=== PATIENT | female | born 1945 | race Caucasian/White ===

== ENCOUNTER 2017-06-25 15:18 | Observation (INO) | payer MEDICARE, OTHER ==
[~2017-06-25] VITALS: Ht 152.4 cm; Wt 55.2 kg
[~2017-06-25 15:18] MED LIST: ALEN70TA30 PO; CALC-67 PO; GLUC1CAP37 PO; IBUP200C11 PO; SIMV40TA3 PO; SODI126M NASAL
--- NOTE | 2017-06-25 16:55 | ERD ---
ER Documentation Chief Complaint Chief Complaint foot slipped while walking and fell forward, 1' lac on forehead (DILIA PAUL MD) HPI 71-year-old female with a history of hypertension presenting after a ground- level fall. She states she was walking and felt like she was suddenly falling to the floor. She has felt intermittently dizzy this week but is unable to describe further. She had no loss of consciousness but did hit her head on the ground. She denies any associated chest pain or shortness of breath. Currently she denies any significant headache, focal weakness, focal numbness, nausea, or vision disturbance. No tinnitus or earache. (DILIA PAUL MD) ROS All systems reviewed and are negative except as per history of present illness. (DILIA PAUL MD) Medications Home Meds Active Scripts Sodium Chloride (Saline Nasal Mist) 126 Ml Mist, 1 SPRAY NASAL QID for 7 Days, BOTTLE Prov:MAGO OWENS MD 04/08/16 Reported Medications Brimonidine/Timolol* (Combigan*) 5 Ml Drops, 1 DROP LEFT EYE BID, BOTTLE 06/25/17 Difluprednate (Durezol) 5 Ml Drops, 5 ML OP BID, BOTTLE 1 DROP LEFT EYE BID 06/25/17 Ketorolac Tromethamine Oph (Ketorolac Tromethamine Oph) 0.4%-5 Ml Opht Drops, 1 DROP LEFT EYE BID, EA 06/25/17 Gluc Gutierres/Chondroitin Sulfate A (Glucosamine Chondroitin Cap) 1 Cap Capsule, 1 CAP PO BID 05/21/15 Simvastatin (Simvastatin) 40 Mg Tablet, 40 MG PO HS, TAB 05/21/15 Ibuprofen* (Advil*) 200 Mg Capsule, 200 MG PO Q6H Y for PAIN, CAP 05/21/15 Alendronate Sodium* (Fosamax*) 70 Mg Tablet, 70 MG PO Q7D, TAB 05/21/15 Calcium Carbonate/Vitamin D3* (Os-Federico 500+D*) 1 Tab Tablet, 1 TAB PO TID, TAB 05/21/15 Allergies Allergies: Coded Allergies: No Known Allergy (Unverified , 05/21/15) PMhx/Soc History of Surgery: Yes (Left eye surgery) Hx Cardiac Disorders: Yes (Hypertension) Hx Alcohol Use: Yes (soc) Hx Substance Use: No Hx Tobacco Use: No Smoking Status: Never smoker (DILIA PAUL MD) FmHx Family History: No coronary disease (DILIA PAUL MD) Physical Exam Vitals Vital Signs Date Time Temp Pulse Resp B/P Pulse Ox O2 Delivery O2 Flow Rate FiO2 06/25/17 15:31 100.9 79 20 195/86 98 (SKYLER BROWN-C) Physical Exam INITIAL VITAL SIGNS: Reviewed by me GENERAL: Well developed, well nourished.. No apparent distress. HEAD: No trauma overlying scalp. Vertical 2 cm laceration above and medial to the right brow. No facial TTP. EYES: EOMI. right pupil round and reactive to light. Left pupil slightly larger and irregularly shaped, baseline per patient due to multiple eye surgeries, but is reactive to light. No subconjunctival hemorrhage. No nystagmus ENT: Nose non-tender. No septal hematoma. Nasopharynx and oropharynx clear. No dental, lip, or tongue injury NECK: No cervical spine TTP RESPIRATORY: Clear to auscultation bilaterally. No increased work of breathing. CV: Regular rate and rhythm. Cap refill <2sec. 2+ Radial and 2+ dorsalis pedis pulses. ABDOMEN: Soft, non-distended, non-tender. No guarding or rebound. Normal active bowel sounds. BACK: No thoracic or lumbar spine TTP. No CVA tenderness. EXTREMITIES: Normal to inspection and palpation. No deformities seen. Full ROM in extremities. SKIN: Warm, dry, pink. NEUROLOGIC: A&Ox4. No facial asymmetry. Cranial nerves intact. Motor and sensory function intact to all 4 extremities. Gait steady and normal. (DILIA PAUL MD) Result Diagram: 06/25/17 1650 06/25/17 1650 Results 24 hrs Laboratory Tests Test 06/25/17 16:50 White Blood Count 7.810^3/ul Red Blood Count 4.0910^6/ul Hemoglobin 13.6g/dl Hematocrit 39.3% Mean Corpuscular Volume 96.1fl Mean Corpuscular Hemoglobin 33.3pg Mean Corpuscular Hemoglobin Concent 34.6g/dl Red Cell Distribution Width 12.2% Platelet Count 01109^3/UL Mean Platelet Volume 10.4fl Neutrophils % 67.0% Lymphocytes % 22.7% Monocytes % 7.6% Eosinophils % 1.7% Basophils % 0.4% Nucleated Red Blood Cells % 0.0/100WBC Neutrophils # 5.210^3/ul Lymphocytes # 1.810^3/ul Monocytes # 0.610^3/ul Eosinophils # 0.110^3/ul Basophils # 0.010^3/ul Nucleated Red Blood Cells # 0.010^3/ul Sodium Level 144mmol/L Potassium Level 4.4mmol/L Chloride Level 108mmol/L Carbon Dioxide Level 26mmol/L Anion Gap 14 Blood Urea Nitrogen 15mg/dl Creatinine 0.65mg/dl Glucose Level 107mg/dl Calcium Level 9.7mg/dl Troponin I < 0.012ng/ml Current Medications Medications (Trade) Dose Ordered Sig/Cynthia Route PRN Reason Start Time Stop Time Status Last Admin Dose Admin Lidocaine (Xylocaine 1% (Mdv) 20 ml) 20 ml ONCE ONCE SC 06/25/17 17:30 06/25/17 17:31 DC (SKYLER BROWN PA-C) Results 24 hrs Laboratory Tests Test 06/25/17 16:50 06/25/17 17:35 White Blood Count 7.810^3/ul Red Blood Count 4.0910^6/ul Hemoglobin 13.6g/dl Hematocrit 39.3% Mean Corpuscular Volume 96.1fl Mean Corpuscular Hemoglobin 33.3pg Mean Corpuscular Hemoglobin Concent 34.6g/dl Red Cell Distribution Width 12.2% Platelet Count 83849^3/UL Mean Platelet Volume 10.4fl Neutrophils % 67.0% Lymphocytes % 22.7% Monocytes % 7.6% Eosinophils % 1.7% Basophils % 0.4% Nucleated Red Blood Cells % 0.0/100WBC Neutrophils # 5.210^3/ul Lymphocytes # 1.810^3/ul Monocytes # 0.610^3/ul Eosinophils # 0.110^3/ul Basophils # 0.010^3/ul Nucleated Red Blood Cells # 0.010^3/ul Sodium Level 144mmol/L Potassium Level 4.4mmol/L Chloride Level 108mmol/L Carbon Dioxide Level 26mmol/L Anion Gap 14 Blood Urea Nitrogen 15mg/dl Creatinine 0.65mg/dl Glucose Level 107mg/dl Calcium Level 9.7mg/dl Troponin I < 0.012ng/ml Urine Color COLORLESS Urine Clarity CLEAR Urine pH 7.0 Urine Specific [place] 1.003 Urine Ketones NEGATIVEmg/dL Urine Nitrite NEGATIVEmg/dL Urine Bilirubin NEGATIVEmg/dL Urine Urobilinogen NEGATIVEmg/dL Urine Leukocyte Esterase NEGATIVELeu/ul Urine Microscopic RBC 2/HPF Urine Microscopic WBC 0/HPF Urine Hemoglobin 1+mg/dL Urine Glucose NEGATIVEmg/dL Urine Total Protein NEGATIVEmg/dl Current Medications Medications (Trade) Dose Ordered Sig/Cynthia Route PRN Reason Start Time Stop Time Status Last Admin Dose Admin Lidocaine (Xylocaine 1% (Mdv) 20 ml) 20 ml ONCE ONCE SC 06/25/17 17:30 06/25/17 17:31 DC Ondansetron HCl (Zofran Inj) 4 mg ER BRIDGE PRN IV NAUSEA AND/OR VOMITING 06/25/17 19:30 06/26/17 19:29 Acetaminophen (Tylenol Tab) 650 mg ER BRIDGE PRN PO MILD PAIN/FEVER 06/25/17 19:30 06/26/17 19:29 Calcium/Vitamin D (Oyster Shell/ Vit-D (500/200)) 1 tab TID PO 06/25/17 21:00 UNV Miscellaneous Information 1 cap BID PO 06/25/17 21:00 UNV Miscellaneous Information 40 mg HS PO 06/25/17 21:00 UNV Miscellaneous Information 1 spray QID NASAL 06/25/17 21:00 UNV IV Flush (NS 3 ml) 3 ml PER PROTOCOL IV 06/25/17 20:30 Ondansetron HCl (Zofran Inj) 4 mg Q6H PRN IV NAUSEA AND/OR VOMITING 06/25/17 20:30 Nitroglycerin (Nitroglycerin (Sl Tab) 0.4 Mg) 1 tab Q5M PRN SL CHEST PAIN 06/25/17 20:30 Acetaminophen (Tylenol Tab) 650 mg Q6H PRN PO PAIN LEVEL 1-3 OR FEVER 06/25/17 20:30 Docusate Sodium (Colace) 100 mg Q12H PRN PO CONSTIPATION 06/25/17 20:30 Bisacodyl (Dulcolax) 5 mg DAILY PRN PO CONSTIPATION 06/25/17 20:30 Hydralazine HCl (Apresoline) 10 mg Q4H PRN IV ELEVATED SYSTOLIC BP 06/25/17 21:30 (DILIA PAUL MD) Procedures/MDM EMERGENT LABS AND DIAGNOSTIC STUDIES: Lab Results above were reviewed and interpreted by me. CBC: no anemia or evidence of infection BMP: No evidence of electrolyte abnormality, renal failure, hypoglycemia Troponin within normal limits UA: no evidence of infection 12-lead EKG was interpreted by Adriana Paul MD: Normal Sinus Rhythm with ventricular rate of 77 beats per minute Normal axis Normal intervals Minimal ST depressions in V4 through V6, and inferior leads Abnormal EKG, no STEMI. Radiology Results as interpreted by Radiology below were reviewed by Ivan Paul MD: Chest x-ray: no acute abnormalities Head/face CT: NO acute abnormalities Initial Nursing notes reviewed. Previous Medical Records requested via the Electronic Health Record. EMERGENCY DEPARTMENT COURSE / MEDICAL DECISION MAKING: Patient is presenting after near syncopal episode and a ground-level fall with head injury. Her vitals on presentation were notable for significantly elevated blood pressure. However her neurologic exam is normal and she has no focal deficits at this time. She was also noted to have a low-grade fever, however her temperature was rechecked and was normal. Patient's symptoms and workup are not consistent with an acute infection. I have a low suspicion for acute stroke. TIA is also less likely. Patient did not have any typical symptoms of acute coronary syndrome or aortic dissection, however her EKG changes were worrisome and will warrant further workup. Patient will be admitted to telemetry for further monitoring. At this time there are no acute changes on her head CT. Laceration was repaired by SEPIDEH Pandya Accepting Care Team: Current data and ongoing care discussed. Time: Time of admission Primary Provider: Sanya Consulting: none Outstanding Data: none (DILIA PAUL MD) 1. laceration Repair by Skyler Brown PA-C: Patient was verbally consented Anesthesia: 1% lidocaine locally Location: Forehead Tendon/Joint/Nerves: No injury Foreign body: None detected after copious irrigation and exploration Technique: Simple Interrupted Sutures 3 using 5-0 Ethilon Complexity: No subcutaneous sutures/mucosal repair/ edge excision Post Closure Length: 2.5 cm 2. laceration Repair by Skyler Brown PA-C: Patient was verbally consented Anesthesia: 1% lidocaine locally Location: Forehead Tendon/Joint/Nerves: No injury Foreign body: None detected after copious irrigation and exploration Technique: Simple Interrupted Sutures 3 using 5-0 Ethilon Complexity: No subcutaneous sutures/mucosal repair/ edge excision Post Closure Length: 2 cm (SKYLER BROWN PA-C) Departure Diagnosis: Primary Impression: Near syncope Additional Impressions: Laceration of forehead Encounter type: initial encounter Qualified Code: S01.81XA - Laceration of forehead, initial encounter Head injury Encounter type: initial encounter Qualified Code: S09.90XA - Injury of head , initial encounter Uncontrolled hypertension Condition: Fair DILIA PAUL MD Jun 25, 2017 16:55 SKYLER BROWN PA-C Jun 25, 2017 18:04
[2017-06-25 17:00] LABS: BASOPHILS % 0.4 % (0.0-2.0); EOSINOPHILS # 0.1 10^3/ul (0.0-0.5); EOSINOPHILS % 1.7 % (0.0-7.0); HEMATOCRIT 39.3 % (37.0-47.0); HEMOGLOBIN 13.6 g/dl (12.0-16.0); LYMPHOCYTES # 1.8 10^3/ul (0.8-2.9); LYMPHOCYTES % 22.7 % (15.0-51.0); MEAN CORPUSCULAR HEMOGLOBIN 33.3 pg (29.0-33.0); MEAN CORPUSCULAR HGB CONC 34.6 g/dl (32.0-37.0); MEAN CORPUSCULAR VOLUME 96.1 fl (82.0-101.0); MEAN PLATELET VOLUME 10.4 fl (7.4-10.4); MONOCYTE # 0.6 10^3/ul (0.3-0.9); MONOCYTES % 7.6 % (0.0-11.0); NEUTROPHIL # 5.2 10^3/ul (1.6-7.5); PLATELET COUNT 225 10^3/UL (140-415); RED BLOOD COUNT 4.09 10^6/ul (4.20-5.40); RED CELL DISTRIBUTION WIDTH 12.2 % (11.5-14.5); WHITE BLOOD COUNT 7.8 10^3/ul (4.8-10.8)
[2017-06-25 17:16] LABS: ANION GAP 14 (8-16); BLOOD UREA NITROGEN 15 mg/dl (7-20); CALCIUM 9.7 mg/dl (8.4-10.2); CARBON DIOXIDE 26 mmol/L (21-31); CHLORIDE 108 mmol/L (97-110); CREATININE 0.65 mg/dl (0.44-1.00); GLUCOSE 107 mg/dl (70-220); POTASSIUM 4.4 mmol/L (3.5-5.1); SODIUM 144 mmol/L (135-144)
--- NOTE | 2017-06-25 17:19 | RADRPT ---
PROCEDURE: XR Chest. CLINICAL INDICATION: Syncope TECHNIQUE: Single AP portable chest. COMPARISON: 05/21/2015Chest x-ray FINDINGS: The cardiomediastinal silhouette is within normal limits of size. Atherosclerotic calcification of t he aorta. The lungs are clear without pleural effusion or focal consolidation. No pneumothorax. The osseous structures and soft tissues are unremarkable. IMPRESSION: 1. No evidence for active cardiopulmonary disease. RPTAT:AAJJ Farhana Oswald Physician Date Time Electronically viewed and signed by Physician Aishwarya on 06/25/2017 17:19 ROSIE/
--- NOTE | 2017-06-25 17:25 | RADRPT ---
PROCEDURE: CT HEAD NON CONTRAST CLINICAL INDICATION: Syncope with head injury TECHNIQUE: Utilizing the multi-slice spiral CT scanner, multiple images were obtained through the b rain without intravenous contrast. Automatic exposure control was utilized as dose lowering techniqu e.DICOM images available One of more of the following dose reduction techniques were utilized: -automatic exposure control.-a djustment of the mA and/or kV according to patient size. -Use of iterative reconstruction technique. Radiation Dose: CTDI is 44.68 mGy. DLP is 720.23 mGy-cm. COMPARISON: None FINDINGS: Ventricular system appears unremarkable. Periventricular low density area suggestive of deep white m atter ischemic changes. No acute intracranial bleed, midline shift, acute extra-axial collection not ed. 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 Calcification intracranial ICA noted at the level of cavernous si nus. Bony calvarium and overlying soft tissues appear unremarkable. Posterior fossa and brainstem ap pears unremarkable. IMPRESSION: NO ACUTE INTRACRANIAL BLEED NOTED. RPTAT: AAOO Physician Darlin Date Time Electronically viewed and signed by Physician Darlin on 06/25/2017 17:24 MB/
[2017-06-25] MEDS ORDERED: LIDOCAINE 1% (MDV) 20 ML INJ SC ONE (17:30)
--- NOTE | 2017-06-25 17:31 | RADRPT ---
PROCEDURE: CT SCAN OF FACE AND SINUSES CLINICAL INDICATION: Fall with trauma TECHNIQUE: Transaxial slices through the sinus was obtained with bone and soft tissue windows. Add itional sagittal and coronal reconstruction images were acquired. One of more of the following dose reduction techniques were utilized: -automatic exposure control.-adjustment of the mA and/or kV acco rding to patient size. -Use of iterative reconstruction technique.DICOM images available Radiation Dose: CTDI vol 29.41 mGy, DLP 495.39 mGy-cm. One of more of the following dose reduction techniques were utilized: -automatic exposure control -adjustment of the mA and/or kV according to patient size -Use of iterative reconstruction technique CONTRAST: None COMPARISON: None FINDINGS: Temporomandibular joints, hard palate, atlantoaxial, atlanto-occipital joints appear intact. Calcifi cation intracranial ICA noted at the level of cavernous sinus. Nasal septum is in the midline. Minim al air-fluid levels noted in the left maxillary sinus. Ostiomeatal unit is patent. No blowout fractu res seen. Moderate degenerative changes noted in the upper cervical spine mandible , zygoma appears intact. Prosthetic left lobe is seen. Mild right frontal soft tissue swelling noted. Limited slices through the brain appear unremarkable. IMPRESSION: No blowout fracture noted. RPTAT: AAOO Physician Darlin Date Time Electronically viewed and signed by Physician Darlin on 06/25/2017 17:31 MB/
[2017-06-25 17:32] LABS: TROPONIN-I < 0.012 ng/ml (0.00-0.12)
[2017-06-25 18:09] LABS: ADD UMIC YES; UR ASCORBIC ACID NEGATIVE (NEGATIVE); UR BILIRUBIN (Dip) NEGATIVE (NEGATIVE); UR BLOOD (Dip) 1+ mg/dL (NEGATIVE); UR CLARITY CLEAR (CLEAR); UR COLOR COLORLESS (YELLOW); UR GLUCOSE (Dip) NEGATIVE (NEGATIVE); UR KETONES (Dip) NEGATIVE (NEGATIVE); UR LEUKOCYTE ESTERASE (Dip) NEGATIVE Leu/ul (NEGATIVE); UR NITRITE (Dip) NEGATIVE (NEGATIVE); UR RBC 2 /HPF (0-5); UR SPECIFIC GRAVITY (Dip) 1.003 (1.003-1.030); UR TOTAL PROTEIN (Dip) NEGATIVE (NEGATIVE); UR UROBILINOGEN (Dip) NEGATIVE (NEGATIVE)
[2017-06-25] MEDS ORDERED: ACETAMINOPHEN 325 MG TAB PO PRN ×2 (19:30→20:30)
[2017-06-25] MEDS ORDERED: ONDANSETRON 4 MG INJ IV PRN ×2 (19:30→20:30)
[2017-06-25] MEDS ORDERED: NITROGLYCERIN (SL) 0.4 MG TAB SL PRN (20:30)
[2017-06-25] MEDS ORDERED: DOCUSATE SODIUM 100 MG CAP PO PRN (20:30)
[2017-06-25] MEDS ORDERED: BISACODYL (EC) 5 MG TAB PO PRN (20:30)
[2017-06-25] MEDS ORDERED: NACL 0.9% 3 ML SYG IV SCH (20:30)
[2017-06-25] MEDS ORDERED: [UNRECOGNIZED DRUG - OTHER] PO SCH (21:00)
[2017-06-25] MEDS ORDERED: CHONDROITIN SULFATE A PO SCH (21:00)
[2017-06-25] MEDS ORDERED: GLUC SU PO SCH (21:00)
[2017-06-25] MEDS ORDERED: hydrALAzine 20 MG INJ IV PRN (21:30)
[2017-06-25] MEDS ORDERED: KETO5DRO79 LEFT EYE (21:33)
[2017-06-25] MEDS ORDERED: DIFL5DRO OP (21:35)
[2017-06-25] MEDS ORDERED: COMBIG5 LEFT EYE (21:35)
--- NOTE | 2017-06-25 22:02 | RADRPT ---
PROCEDURE: US Carotids. CLINICAL INDICATION: bruit , possible TECHNIQUE: Multiple sonographic of the carotid bifurcation region and vertebral arteries were obta ined utilizing davis scale, duplex and color-flow imaging. The images were reviewed on a PACS worksta tion. COMPARISON: No prior studies are available for comparison. FINDINGS: Evaluation of the right carotid bifurcation region reveals mild to moderate calcific atherosclerotic disease. There is a 43% stenosis in the right carotid bulb region. Evaluation of the left carotid bifurcation region reveals mild calcific atherosclerotic disease. The re is a 31% stenosis in the left carotid bulb region. There is antegrade flow within the vertebral arteries bilaterally. RIGHT CAROTID MEASUREMENTS: Common Carotid Jbzion18.6 (cm/sec) Internal Carotid Artery - zurborze33.8 (cm/sec) Internal Carotid Artery - mid64 (cm/sec) Internal Carotid Artery - itgrft23.1 (cm/sec) Internal Carotid/Common Carotid0.92 LEFT CAROTID MEASUREMENTS: Common Carotid Cduwzq52.6 (cm/sec) Internal Carotid Artery - kbzhnwad13.5 (cm/sec) Internal Carotid Artery - mid56.8 (cm/sec) Internal Carotid Artery - awcjck40 (cm/sec) Internal Carotid/Common Carotid0.91 RPTAT: AA IMPRESSION: No evidence for hemodynamically significant stenosis in the bilateral internal carotid arteries - va lidated velocity measurements with angiographic measurements, velocity criteria are extrapolated fro m diameter data as defined by the Society of Radiologists in Ultrasound Consensus Conference Radiolo gy 2003; 229;340-346. This study does indirectly reference the measurement of the distal ICA diamet er as the denominator for stenosis measurement. Normal antegrade flow in the vertebral arteries bilaterally. Mild to moderate calcific plaque in the carotid bulbs with a 45% stenosis in the right carotid bulb region. .Ryan Yadav MD, MD Date Time Electronically viewed and signed by .Ryan Yadav MD, MD on 06/25/2017 22:02 .S/
--- NOTE | 2017-06-25 22:49 | HP ---
Date/Time of Note Date/Time of Note DATE: 06/25/17 TIME: 22:49 Assessment/Plan VTE Prophylaxis VTE Prophylaxis Intervention: SCD's Assessment/Plan Chief Complaint/Hosp Course This is a 71-year-old female being admitted to the telemetry floor for: #1 syncope: Neurocardiogenic versus cardiac: Patient does have an abnormal EKG with ST depressions. Will continue telemetry monitoring this time. Will check serial cardiac enzymes. Will obtain an echocardiogram. CT scan of the brain did not show any acute abnormalities. Will order an MRI of the brain and carotid Dopplers. Will check orthostatic vital signs. TSH hemoglobin A1c lipid panel. Consult cardiology. Consider neurology if indicated. Patient sustained a ground-level fall facial CT did not show any acute abnormalities. The lacerations were sutured and there is no bleeding apparent at this time. #2 abnormal EKG: There appears to be ST depressions in aVF and V4 to V5. Patient denies any chest pain. Will trend cardiac enzymes. Check an echocardiogram. Consult cardiology. #3 osteoporosis: Patient is on alendronate weekly resume dose at home and she took already this week. #4 Hyperlipidemia: Continue statin. #5 hypertension: Patient is currently not on any medications will continue to monitor this and start on medications if indicated while being cautious for possible orthostatic hypotension. #6 DVT GI prolapses: SCDs no GI prophylaxis indicated Further treatment strategy will be implemented as per the clinical course Problems: HPI/ROS Admit Date/Time Admit Date/Time Hx of Present Illness cc: Fall This is a 71-year-old female with a history of hypertension presenting after a ground-level fall. She does appear to be a poor historian. She states she was walking and felt like she was suddenly falling to the floor. She has felt intermittently dizzy this week but is unable to describe further. She apparently told the ER physician that she did not have any loss of consciousness however upon my examination she states that she blacked out and that she does not recall the fall. She denies any associated chest pain or shortness of breath. Currently she denies any significant headache, focal weakness, focal numbness, nausea, or vision disturbance. No tinnitus or earache. Allergies: NKDA Medications: See JHON ROS Const: As per HPI Eyes : No pain discharge or redness or change in visual acuity ENT: No pain, sore throat, congestion, congestion, dysphagia or discharge Respiratory: No shortness of breath, cough, sputum, wheezing, or pleuritic pain Cardiovascular: No chest pain, palpitation, PND, or edema GI : no change in appetite, abdominal pain, nausea, vomiting, diarrhea, constipation, or change in the color his stool Genitourinary: No dysuria, hematuria, flank pain , discharge or CVA tenderness Musculoskeletal: No joint pain, back pain, neck pain, restricted range of motion in neck or joints Skin: No rash, bruising or hives Neuro: As per HPI Endocrine: No polyuria, polydipsia, temperature intolerance Psych: No hallucination, depression, anxiety or suicidal ideation PMH/Family/Social Past Medical History Hypertension, hyperlipidemia, osteoporosis Past Surgical History Left retina surgery, hysterectomy, umbilical hernia surgery Family History Significant Family History: no pertinent family hx Social History Smoking Status: Never smoker Drug Use: none Exam/Review of Systems Vital Signs Vitals Vital Signs Date Time Temp Pulse Resp B/P Pulse Ox O2 Delivery O2 Flow Rate FiO2 06/25/17 19:10 66 17 197/90 100 Room Air 06/25/17 15:31 100.9 Exam Exam General: Patient is well-developed well-nourished The patient is alert oriented -3 lying comfortably in bed. HEENT: Patient has 1-2 cm laceration on her forehead was sutured in the ED there is no active bleeding at the site. Neck: Supple with full range of motion. No rigidity or meningismus Chest: Nontender Lungs: Clear to auscultation bilaterally no crackles rales or wheezing Heart: Normal S1-S2, Regular rhythm and rate. Systolic murmur heard at the left second intercostal space Abdomen: Soft , nontender, nondistended , bowel sounds are present. No guarding no rebound tenderness , No masses or organomegaly. No costovertebral temporal angle mass Extremities: Normal to inspection, no edema no cyanosis Neurologic: Normal mental status, speech normal, cranial nerves II through XII are intact, motor and sensory are intact, no focal weakness Additional Comments EKG: Normal sinus rhythm at 77 bpm. There appears to be some ST depressions in aVF and V4 to V5 PROCEDURE: CT HEAD NON CONTRAST CLINICAL INDICATION: Syncope with head injury TECHNIQUE: Utilizing the multi-slice spiral CT scanner, multiple images were obtained through the brain without intravenous contrast. Automatic exposure control was utilized as dose lowering technique.DICOM images available One of more of the following dose reduction techniques were utilized: - automatic exposure control.-adjustment of the mA and/or kV according to patient size. -Use of iterative reconstruction technique. Radiation Dose: CTDI is 44.68 mGy. DLP is 720.23 mGy-cm. COMPARISON: None FINDINGS: Ventricular system appears unremarkable. Periventricular low density area suggestive of deep white matter ischemic changes. No acute intracranial bleed, midline shift, acute extra-axial collection noted. 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 Calcification intracranial ICA noted at the level of cavernous sinus. Bony calvarium and overlying soft tissues appear unremarkable. Posterior fossa and brainstem appears unremarkable. IMPRESSION: NO ACUTE INTRACRANIAL BLEED NOTED. RPTAT: AAOO Physician Darlin Date Time Electronically viewed and signed by Physician Darlin on 06/25/2017 17: 24 MB/ CC: DILIA CERDA MD PROCEDURE: XR Chest. CLINICAL INDICATION: Syncope TECHNIQUE: Single AP portable chest. COMPARISON: 05/21/2015Chest x-ray FINDINGS: The cardiomediastinal silhouette is within normal limits of size. Atherosclerotic calcification of the aorta. The lungs are clear without pleural effusion or focal consolidation. No pneumothorax. The osseous structures and soft tissues are unremarkable. IMPRESSION: 1. No evidence for active cardiopulmonary disease. RPTAT:AAJJ Physician Aishwarya Date Time Electronically viewed and signed by Physician Aishwarya on 06/25/2017 17:19 ROSIE/ CC: DILIA CERDA MD PROCEDURE: CT SCAN OF FACE AND SINUSES CLINICAL INDICATION: Fall with trauma TECHNIQUE: Transaxial slices through the sinus was obtained with bone and soft tissue windows. Additional sagittal and coronal reconstruction images were acquired. One of more of the following dose reduction techniques were utilized: -automatic exposure control.-adjustment of the mA and/or kV according to patient size. -Use of iterative reconstruction technique.DICOM images available Radiation Dose: CTDI vol 29.41 mGy, DLP 495.39 mGy-cm. One of more of the following dose reduction techniques were utilized: -automatic exposure control -adjustment of the mA and/or kV according to patient size -Use of iterative reconstruction technique CONTRAST: None COMPARISON: None FINDINGS: Temporomandibular joints, hard palate, atlantoaxial, atlanto-occipital joints appear intact. Calcification intracranial ICA noted at the level of cavernous sinus. Nasal septum is in the midline. Minimal air-fluid levels noted in the left maxillary sinus. Ostiomeatal unit is patent. No blowout fractures seen. Moderate degenerative changes noted in the upper cervical spine mandible , zygoma appears intact. Prosthetic left lobe is seen. Mild right frontal soft tissue swelling noted. Limited slices through the brain appear unremarkable. IMPRESSION: No blowout fracture noted. RPTAT: AAOO Physician Darlin Date Time Electronically viewed and signed by Physician Darlin on 06/25/2017 17: 31 MB/ CC: DILIA CERDA MD Labs Result Diagram: 06/25/17 1650 06/25/17 1650 Medications Medications Current Medications Calcium/Vitamin D (Oyster Shell/ Vit-D (500/200)) 1 tab TID PO ; Start at 21:00; Status UNV Miscellaneous Information 1 cap BID PO ; Start 06/25/17 at 21:00; Status UNV Miscellaneous Information 40 mg HS PO ; Start 06/25/17 at 21:00; Status UNV Miscellaneous Information 1 spray QID NASAL ; Start 06/25/17 at 21:00; Status UNV Ondansetron HCl (Zofran Inj) 4 mg Q6H PRN IV NAUSEA AND/OR VOMITING; Start at 20:30; Status UNV Nitroglycerin (Nitroglycerin (Sl Tab) 0.4 Mg) 1 tab Q5M PRN SL CHEST PAIN; Start 06/25/17 at 20:30; Status UNV Acetaminophen (Tylenol Tab) 650 mg Q6H PRN PO PAIN LEVEL 1-3 OR FEVER; Start 06/25/17 at 20:30; Status UNV Docusate Sodium (Colace) 100 mg Q12H PRN PO CONSTIPATION; Start 06/25/17 at 20 :30; Status UNV Bisacodyl (Dulcolax) 5 mg DAILY PRN PO CONSTIPATION; Start 06/25/17 at 20:30; Status UNV Hydralazine HCl (Apresoline) 10 mg Q4 PRN IV ELEVATED SYSTOLIC BP; Start 06/25 at 21:30; Status UNV FABIENNE BAUER Jun 25, 2017 22:49
[2017-06-25 22:57] VITALS: TEMP 97.8
[2017-06-26] VITALS (14 sets, daily range): BP systolic 112–180; BP diastolic 62–83; PULSE 52–72; RESP 18–19; Ht 152.4 cm; Wt 55.2 kg
[2017-06-26 07:14] LABS: BASOPHILS % 0.4 % (0.0-2.0); EOSINOPHILS % 0.5 % (0.0-7.0); HEMATOCRIT 37.1 % (37.0-47.0); LYMPHOCYTES # 1.6 10^3/ul (0.8-2.9); LYMPHOCYTES % 19.4 % (15.0-51.0); MEAN CORPUSCULAR HEMOGLOBIN 33.3 pg (29.0-33.0); MEAN CORPUSCULAR VOLUME 95.1 fl (82.0-101.0); MEAN PLATELET VOLUME 10.5 fl (7.4-10.4); MONOCYTE # 0.5 10^3/ul (0.3-0.9); NEUTROPHIL # 6.1 10^3/ul (1.6-7.5); NEUTROPHILS % 73.3 % (39.0-77.0); PLATELET COUNT 217 10^3/UL (140-415); RED CELL DISTRIBUTION WIDTH 12.7 % (11.5-14.5); WHITE BLOOD COUNT 8.3 10^3/ul (4.8-10.8)
[2017-06-26 07:44] LABS: CREATINE KINASE 126 IU/L (23-200)
[2017-06-26 07:47] LABS: ALBUMIN 4.2 g/dl (3.3-4.9); ALBUMIN/GLOBULIN RATIO 1.4; BILIRUBIN,INDIRECT 0.4 mg/dl (0-1.1); BILIRUBIN,TOTAL 0.4 mg/dl (0.2-1.3); CALCIUM 9.4 mg/dl (8.4-10.2); CHOL/HDL RATIO 3.1 RATIO; CREATININE 0.61 mg/dl (0.44-1.00); MAGNESIUM 2.1 mg/dl (1.7-2.5); TOTAL PROTEIN 7.2 g/dl (6.1-8.1)
[2017-06-26 07:58] LABS: CK-MB 2.02 ng/ml (0.0-2.4)
[2017-06-26 08:07] LABS: TROPONIN-I < 0.012 ng/ml (0.00-0.12)
[2017-06-26 08:34] LABS: THYROID STIMULATING HORMONE 1.36 MIU/L (0.465-4.680)
[2017-06-26] MEDS: CALCIUM/VITAMIN D (500/200) TAB PO SCH ×3 (08:47→21:06)
[2017-06-26] MEDS: SALINE 0.65% 45 ML NAS SPRAY NASAL SCH ×4 (08:48→21:06)
[2017-06-26] MEDS ORDERED: BRIMONIDINE 0.2%-TIMOLOL 0.5% 5ML OPH LEFT EYE SCH (09:00)
--- NOTE | 2017-06-26 12:39 | CONS ---
Date/Time of Note Date/Time of Note DATE: 06/26/17 TIME: 12:32 Assessment/Plan Assessment/Plan Chief Complaint/Hosp Course Fall vs syncope: Though pt adamantly denies syncope, it is unusual for someone to have this traumatic of a fall without syncope, mechanical cause, or symptoms preceding it. I am not sure if she is a good historian or is downplaying the event. Nonetheless she has not had any arrhythmias on tele. Abnormal EKG: mild ST depressions but trops negative. Unclear significance. Will check echo and stress test in setting of unexplained fall vs syncope HTN -echo -tele monitoring -Lexiscan in am as pt had caffeine today Problems: Consultation Date/Type/Reason Admit Date/Time Date of Consultation: Jun 26, 2017 Type of Consultation: Cardiology Reason for Consultation Possible syncope Referring Provider: FABIENNE BAUER Hx of Present Illness 71 yo F with a h/o HTN, who presented with possible syncope. 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 She notes that she was walking and fell down. However she denies tripping. She is adamant that she did not lose consciousness however and remembers everything. No chest pain, SOB, dizziness, prior to or at any time. She feels well now. She has laceration and stitches on her forehead. No prior cardiac history. No prior syncope. per HPI Past Medical History HTN Social History Smoking Status: Never smoker Drug Use: none Exam/Review of Systems Vital Signs Vitals Vital Signs Date Time Temp Pulse Resp B/P Pulse Ox O2 Delivery O2 Flow Rate FiO2 06/26/17 12:14 66 06/26/17 11:45 97.7 18 112/64 95 06/25/17 22:57 Room Air Exam Constitutional: alert, oriented Psych: nl mood/affect, no complaints Head: normocephalic, No atraumatic (forehead laceration/stitches ) Eyes: nl conjunctiva ENMT: nl external ears & nose Neck: No jvd Respiratory: clear to auscultation, No crackles/rales, No wheezing Cardiovascular: regular rate and rhythm, No edema, No systolic murmur Gastrointestinal: non-tender, soft, No distended Neurological: nl mental status, nl speech Results EKG: SInus, submillimeter ST depression anterolateral leads Result Diagram: 06/26/17 0637 06/26/17 0637 Results 24 hrs Laboratory Tests Test 06/25/17 16:50 06/25/17 17:35 06/26/17 06:37 White Blood Count 7.8 8.3 Red Blood Count 4.09 L 3.90 L Hemoglobin 13.6 13.0 Hematocrit 39.3 37.1 Mean Corpuscular Volume 96.1 95.1 Mean Corpuscular Hemoglobin 33.3 H 33.3 H Mean Corpuscular Hemoglobin Concent 34.6 35.0 Red Cell Distribution Width 12.2 12.7 Platelet Count 225 217 Mean Platelet Volume 10.4 10.5 H Neutrophils % 67.0 73.3 Lymphocytes % 22.7 19.4 Monocytes % 7.6 6.0 Eosinophils % 1.7 0.5 Basophils % 0.4 0.4 Nucleated Red Blood Cells % 0.0 0.0 Neutrophils # 5.2 6.1 Lymphocytes # 1.8 1.6 Monocytes # 0.6 0.5 Eosinophils # 0.1 0.0 Basophils # 0.0 0.0 Nucleated Red Blood Cells # 0.0 0.0 Sodium Level 144 143 Potassium Level 4.4 4.0 Chloride Level 108 111 H Carbon Dioxide Level 26 23 Anion Gap 14 13 Blood Urea Nitrogen 15 13 Creatinine 0.65 0.61 Glucose Level 107 107 Calcium Level 9.7 9.4 Troponin I < 0.012 < 0.012 Urine Color COLORLESS Urine Clarity CLEAR Urine pH 7.0 Urine Specific [place] 1.003 Urine Ketones NEGATIVE Urine Nitrite NEGATIVE Urine Bilirubin NEGATIVE Urine Urobilinogen NEGATIVE Urine Leukocyte Esterase NEGATIVE Urine Microscopic RBC 2 Urine Microscopic WBC 0 Urine Hemoglobin 1+ H Urine Glucose NEGATIVE Urine Total Protein NEGATIVE Hemoglobin A1c 5.4 Magnesium Level 2.1 Total Bilirubin 0.4 Direct Bilirubin 0.00 Indirect Bilirubin 0.4 Aspartate Amino Transf (AST/SGOT) 28 Alanine Aminotransferase (ALT/SGPT) 35 Alkaline Phosphatase 54 Creatine Kinase 126 Creatine Kinase Index 1.6 Creatinine Kinase MB (Mass) 2.02 Total Protein 7.2 Albumin 4.2 Globulin 3.00 Albumin/Globulin Ratio 1.40 Triglycerides Level 46 Cholesterol Level 186 LDL Cholesterol, Calculated 117 HDL Cholesterol 60 Cholesterol/HDL Ratio 3.1 Thyroid Stimulating Hormone (TSH) 1.360 Medications Medications Current Medications Calcium/Vitamin D (Oyster Shell/ Vit-D (500/200)) 1 tab TID PO Last administered on 06/26/17 08:47; Admin Dose 1 TAB; Start 06/26/17 at 09:00 Miscellaneous Information 1 cap BID PO ; Start 06/25/17 at 21:00; Status UNV Atorvastatin Calcium (Lipitor) 20 mg DAILY@21 PO ; Start 06/26/17 at 21:00 Sodium Chloride (Deep Sea) 1 spray QID NASAL Last administered on 06/26/17 08 :48; Admin Dose 1 SPRAY; Start 06/26/17 at 09:00 Ondansetron HCl (Zofran Inj) 4 mg Q6H PRN IV NAUSEA AND/OR VOMITING; Start at 20:30 Nitroglycerin (Nitroglycerin (Sl Tab) 0.4 Mg) 1 tab Q5M PRN SL CHEST PAIN; Start 06/25/17 at 20:30 Acetaminophen (Tylenol Tab) 650 mg Q6H PRN PO PAIN LEVEL 1-3 OR FEVER; Start 06/25/17 at 20:30 Docusate Sodium (Colace) 100 mg Q12H PRN PO CONSTIPATION; Start 06/25/17 at 20 :30 Bisacodyl (Dulcolax) 5 mg DAILY PRN PO CONSTIPATION; Start 06/25/17 at 20:30 Hydralazine HCl (Apresoline) 10 mg Q4H PRN IV ELEVATED SYSTOLIC BP Last administered on 06/26/17 01:56; Admin Dose 10 MG; Start 06/25/17 at 21:30 Brimonidine/ Timolol (Combigan Oph) 1 drop BID LEFT EYE ; Start 06/26/17 at 09: 00 ASHLEY CARTER Jun 26, 2017 12:39
[2017-06-26 13:21] LABS: CREATINE KINASE 103 IU/L (23-200)
[2017-06-26 13:35] LABS: CK-MB 1.49 ng/ml (0.0-2.4); TROPONIN-I < 0.012 ng/ml (0.00-0.12)
--- NOTE | 2017-06-26 14:05 | PN ---
Date/Time of Note Date/Time of Note DATE: 06/26/17 TIME: 13:58 Assessment/Plan VTE Prophylaxis VTE Prophylaxis Intervention: SCD's Lines/Catheters Urinary Cath still in place: No Assessment/Plan Assessment/Plan 1. Possible syncope, awaiting for echo, stress thallium is scheduled for tomorrow 2. Hypertension, controlled without antihypertensive 3. Dyslipidemia, on lipitor 4. DVT prophylaxis: SCDs Subjective 24 Hr Interval Summary Free Text/Dictation no chest pain or shortness of breath Exam/Review of Systems Vital Signs Vitals Vital Signs Date Time Temp Pulse Resp B/P Pulse Ox O2 Delivery O2 Flow Rate FiO2 06/26/17 12:14 66 06/26/17 11:45 97.7 18 112/64 95 06/25/17 22:57 Room Air Exam Constitutional: alert, oriented, well developed Psych: nl mood/affect, no complaints Head: other (two laceration on forehead, sutured) Eyes: EOMI, PERRL, nl conjunctiva, nl lids, nl sclera ENMT: nl external ears & nose, nl lips & teeth, nl nasal mucosa & septum Neck: non-tender, supple Respiratory: clear to auscultation, normal air movement, No congested cough, No crackles/rales, No diminished breath sounds, No intercostal retraction, No labored breathing, No other, No respirations, No tactile fremitus, No wheezing Cardiovascular: nl pulses, regular rate and rhythm, No S3, No S4, No bruits, No diastolic murmur, No edema, No gallop, No irregular rhythm, No jugular venous distention (JVD), No murmurs/extra sounds, No other, No rub, No systolic murmur Gastrointestinal: nl liver, spleen, non-tender, soft Musculoskeletal: nl extremities to inspection Extremities: normal pulses, No calf tenderness, No clubbing, No cyanosis, No edema, No other, No palpable cord, No pitting pedal edema, No tenderness Neurological: CHIEF TECHNICAL OFFICER II-XII intact, nl mental status, nl speech, nl strength Results Result Diagram: 06/26/17 0637 06/26/17 0637 Results 24 hrs Laboratory Tests Test 06/25/17 16:50 06/25/17 17:35 06/26/17 06:37 06/26/17 12:33 White Blood Count 7.8 8.3 Red Blood Count 4.09 L 3.90 L Hemoglobin 13.6 13.0 Hematocrit 39.3 37.1 Mean Corpuscular Volume 96.1 95.1 Mean Corpuscular Hemoglobin 33.3 H 33.3 H Mean Corpuscular Hemoglobin Concent 34.6 35.0 Red Cell Distribution Width 12.2 12.7 Platelet Count 225 217 Mean Platelet Volume 10.4 10.5 H Neutrophils % 67.0 73.3 Lymphocytes % 22.7 19.4 Monocytes % 7.6 6.0 Eosinophils % 1.7 0.5 Basophils % 0.4 0.4 Nucleated Red Blood Cells % 0.0 0.0 Neutrophils # 5.2 6.1 Lymphocytes # 1.8 1.6 Monocytes # 0.6 0.5 Eosinophils # 0.1 0.0 Basophils # 0.0 0.0 Nucleated Red Blood Cells # 0.0 0.0 Sodium Level 144 143 Potassium Level 4.4 4.0 Chloride Level 108 111 H Carbon Dioxide Level 26 23 Anion Gap 14 13 Blood Urea Nitrogen 15 13 Creatinine 0.65 0.61 Glucose Level 107 107 Calcium Level 9.7 9.4 Troponin I < 0.012 < 0.012 < 0.012 Urine Color COLORLESS Urine Clarity CLEAR Urine pH 7.0 Urine Specific [place] 1.003 Urine Ketones NEGATIVE Urine Nitrite NEGATIVE Urine Bilirubin NEGATIVE Urine Urobilinogen NEGATIVE Urine Leukocyte Esterase NEGATIVE Urine Microscopic RBC 2 Urine Microscopic WBC 0 Urine Hemoglobin 1+ H Urine Glucose NEGATIVE Urine Total Protein NEGATIVE Hemoglobin A1c 5.4 Magnesium Level 2.1 Total Bilirubin 0.4 Direct Bilirubin 0.00 Indirect Bilirubin 0.4 Aspartate Amino Transf (AST/SGOT) 28 Alanine Aminotransferase (ALT/SGPT) 35 Alkaline Phosphatase 54 Creatine Kinase 126 103 Creatine Kinase Index 1.6 1.4 Creatinine Kinase MB (Mass) 2.02 1.49 Total Protein 7.2 Albumin 4.2 Globulin 3.00 Albumin/Globulin Ratio 1.40 Triglycerides Level 46 Cholesterol Level 186 LDL Cholesterol, Calculated 117 HDL Cholesterol 60 Cholesterol/HDL Ratio 3.1 Thyroid Stimulating Hormone (TSH) 1.360 Medications Medications Current Medications Calcium/Vitamin D (Oyster Shell/ Vit-D (500/200)) 1 tab TID PO Last administered on 06/26/17t 13:07; Admin Dose 1 TAB; Start 06/26/17 at 09:00 Miscellaneous Information 1 cap BID PO ; Start 06/25/17 at 21:00; Status UNV Atorvastatin Calcium (Lipitor) 20 mg DAILY@21 PO ; Start 06/26/17 at 21:00 Sodium Chloride (Deep Sea) 1 spray QID NASAL Last administered on 06/26/17 13 :07; Admin Dose 1 SPRAY; Start 06/26/17 at 09:00 Ondansetron HCl (Zofran Inj) 4 mg Q6H PRN IV NAUSEA AND/OR VOMITING; Start at 20:30 Nitroglycerin (Nitroglycerin (Sl Tab) 0.4 Mg) 1 tab Q5M PRN SL CHEST PAIN; Start 06/25/17 at 20:30 Acetaminophen (Tylenol Tab) 650 mg Q6H PRN PO PAIN LEVEL 1-3 OR FEVER; Start 06/25/17 at 20:30 Docusate Sodium (Colace) 100 mg Q12H PRN PO CONSTIPATION; Start 06/25/17 at 20 :30 Bisacodyl (Dulcolax) 5 mg DAILY PRN PO CONSTIPATION; Start 06/25/17 at 20:30 Hydralazine HCl (Apresoline) 10 mg Q4H PRN IV ELEVATED SYSTOLIC BP Last administered on 06/26/17 01:56; Admin Dose 10 MG; Start 06/25/17 at 21:30 Brimonidine/ Timolol (Combigan Oph) 1 drop BID LEFT EYE ; Start 06/26/17 at 09: 00 MOSES ALMENDAREZ MD Jun 26, 2017 14:05
--- NOTE | 2017-06-26 15:05 | RADRPT ---
Echocardiogram Report Patient Name: CRUZITO SUN Gender: Female Date: 1945 Study Date: 26-Jun-2017 Chief Substation Operator: Giacomo Yeboah [facility] Location: [address] Ref. Physician: FABIENNE BAUER Quality: Adequate Procedures: Transthoracic echocardiogram with complete 2D, M-Mode, and doppler examination. Indications: Fall, abn EKG. 2D/M Mode Doppler Measurement Value Normal Ranges Measurement Value Normal Ranges LVIDd 2D 4.1 3.5 - 5.6 cm AV Peak Ravi 1.8 m/sec LVIDs 2D 2.6 2.1 - 4.1 cm AV Peak PG 13.0 mmHg FS 2D 36.2 % LVOT Peak Ravi 1.3 m/sec LVPWd 2D 1.3 0.6 - 1.1 cm LVOT Peak PG 6.0 mmHg IVSd 2D 1.3 0.6 - 1.1 cm TR Peak Ravi 2.9 m/sec IVS/LVPW 2D 1.0 TR Peak PG 33.0 mmHg AoR Diam 2D 2.9 2.0 - 3.7 cm RVSP 36.0 mmHg LA/Ao 2D 1 0 - 1 EDV 2D 66.9 cm3 ESV 2D 17.4 cm3 LA Dimen 2D 3.6 2.3 - 4.0 cm Findings Left Ventricle: Normal left ventricular systolic function. Normal left ventricular cavity size. Mild concentric left ventricular hypertrophy. Ejection fraction is visually estimated at 60 %. Tissue Doppler/Mitral Doppler indices are consistent with impaired relaxation (Stage I diastolic dysfunction). Right Ventricle: Normal right ventricular size. Normal right ventricular systolic function. Left Atrium: There is mild enlargement of left atrium. Right Atrium: The right atrium is normal in size. Mitral Valve: Mild mitral annular calcification. Trace mitral regurgitation. Aortic Valve: Normal appearance of the aortic valve. No significant aortic stenosis or insufficiency. Tricuspid Valve: Normal appearance of the tricuspid valve. Estimated peak PA systolic pressure 36 mmHg. There is mild tricuspid regurgitation. Pulmonic Valve: Pulmonic valve not well visualized. There is trace pulmonic regurgitation. Pericardium: Normal pericardium with no significant pericardial effusion. Aorta: Normal aortic root. IVC: Normal size and normal respiratory collapse consistent with normal right atrial pressure. Conclusions 1.Normal left ventricular systolic function. Normal left ventricular cavity size. Mild concentric left ventricular hypertrophy. Ejection fraction is visually estimated at 60 %. Tissue Doppler/Mitral Doppler indices are consistent with impaired relaxation (Stage I diastolic dysfunction). 2.No significant valvular stenosis or regurgitation seen. 3.Estimated peak PA systolic pressure 36 mmHg based on RA pressure of 3 mmHg. Electronically Signed By: Santi Baldwin 26-Jun-2017 15:03:45 -0800 Patient Name: CRUZITO SUN Study Date: 26-Jun-2017 [id number]
--- NOTE | 2017-06-26 15:22 | RADRPT ---
PROCEDURE: MR Brain without contrast. CLINICAL INDICATION: Neurologic deficit ; syncope TECHNIQUE: An MRI of the brain was performed on a high-resolution MR scanner utilizing the followi ng sequences: Sagittal and axial T1 weighted, axial T2 weighted, axial FLAIR, coronal GRE, and axial diffusion weighted with ADC mapping. Images were reviewed high-resolution PACS workstation. No con trast was administered. COMPARISON: Correlation head CT 06/25/17 FINDINGS: No acute parenchymal hemorrhage, mass effect, or midline shift. No evidence of recent infarct. Scatt ered subcortical, deep, and periventricular white matter T2-weighted/FLAIR hyperintensities are cons istent with chronic microvascular ischemic disease. No suspicious parenchymal hypointense signal abnormalities are seen on the GRE images to suggest the presence of blood degradation products. The ventricles are stable size with mild volume loss noted. Normal flow voids are visible in the proximal intracranial arteries suggesting their patency. No significant opacification of the paranasal sinuses or mastoids. Empty appearance of the sella tu rcica. Postoperative changes of the left orbit. IMPRESSION: No acute intracranial abnormality or evidence of recent infarct. Mild chronic microvascular disease. RPTAT: AA .Edson Delacruz MD, MD Date Time Electronically viewed and signed by .Edson Delacruz MD, on 06/26/2017 15:22 .T/
[2017-06-26] MEDS: TIMOLOL 0.5% 5 ML OPH LEFT EYE SCH ×2 (17:32→21:06)
[2017-06-26] MEDS: BRIMONIDINE 0.2% 5 ML BTL LEFT EYE SCH ×2 (17:32→21:06)
[2017-06-26] MEDS ORDERED: ATORVASTATIN 20 MG TAB PO SCH (21:00)
[2017-06-27] VITALS (8 sets, daily range): BP systolic 118–153; BP diastolic 62–69; PULSE 44–54; RESP 16–18
[2017-06-27] MEDS: TIMOLOL 0.5% 5 ML OPH LEFT EYE SCH (08:37)
[2017-06-27] MEDS: SALINE 0.65% 45 ML NAS SPRAY NASAL SCH ×2 (08:37→14:09)
[2017-06-27] MEDS: BRIMONIDINE 0.2% 5 ML BTL LEFT EYE SCH (08:37)
[2017-06-27] MEDS ORDERED: REGADENOSON 0.4 MG/5 ML SYG ONE (09:34)
--- NOTE | 2017-06-27 11:17 | CONS ---
Date/Time of Note Date/Time of Note DATE: 06/27/17 TIME: 11:12 Assessment/Plan Assessment/Plan Chief Complaint/Hosp Course Fall vs syncope: Though pt adamantly denies syncope, it is unusual for someone to have this traumatic of a fall without syncope, mechanical cause, or symptoms preceding it. I am not sure if she is a good historian or is downplaying the event. Echo is normal. Sinus bradycardia but no heart block. Lexiscan pending Sinus bradycardia: not on systemic BB but has timolol eye drops. No heart block to suggest this may be the cause but could consider switching to different agent Abnormal EKG: mild ST depressions but trops negative. Unclear significance. Echo normal. Lexiscan pending. HTN -if Lexiscan is unremarkable, ok for d/c from my standpoint as no objective abnormalities Problems: Consultation Date/Type/Reason Admit Date/Time Jun 25, 2017 at 19:04 Initial Consult Date 06/26/17 Type of Consultation: Cardiology Referring Provider: FABIENNE BAUER 24 HR Interval Summary Free Text/Dictation Sinus bradycardia mostly while asleep. No heart block. Exam/Review of Systems Vital Signs Vitals Vital Signs Date Time Temp Pulse Resp B/P Pulse Ox O2 Delivery O2 Flow Rate FiO2 06/27/17 08:20 54 06/27/17 07:36 97.9 16 145/67 97 06/25/17 22:57 Room Air Intake and Output 06/26/17 06/26/17 06/27/17 15:00 23:00 07:00 Intake Total 300 ml 1200 ml 400 ml Balance 300 ml 1200 ml 400 ml Exam Constitutional: alert, oriented Psych: nl mood/affect, no complaints Head: atraumatic, normocephalic Neck: No jvd Respiratory: clear to auscultation, No crackles/rales Cardiovascular: edema, regular rate and rhythm, systolic murmur (2/6 BORIS) Gastrointestinal: non-tender, soft Neurological: nl mental status, nl speech Results Result Diagram: 06/26/17 0637 06/26/17 0637 Results 24 hrs Laboratory Tests Test 06/26/17 12:33 Creatine Kinase 103 Creatine Kinase Index 1.4 Creatinine Kinase MB (Mass) 1.49 Troponin I < 0.012 Medications Medications Current Medications Calcium/Vitamin D (Oyster Shell/ Vit-D (500/200)) 1 tab TID PO Last administered on 06/26/17 21:06; Admin Dose 1 TAB; Start 06/26/17 at 09:00 Atorvastatin Calcium (Lipitor) 20 mg DAILY@21 PO Last administered on 21:06; Admin Dose 20 MG; Start 06/26/17 at 21:00 Sodium Chloride (Deep Sea) 1 spray QID NASAL Last administered on 06/27/17 08 :37; Admin Dose 1 SPRAY; Start 06/26/17 at 09:00 Ondansetron HCl (Zofran Inj) 4 mg Q6H PRN IV NAUSEA AND/OR VOMITING; Start at 20:30 Nitroglycerin (Nitroglycerin (Sl Tab) 0.4 Mg) 1 tab Q5M PRN SL CHEST PAIN; Start 06/25/17 at 20:30 Acetaminophen (Tylenol Tab) 650 mg Q6H PRN PO PAIN LEVEL 1-3 OR FEVER; Start 06/25/17 at 20:30 Docusate Sodium (Colace) 100 mg Q12H PRN PO CONSTIPATION; Start 06/25/17 at 20 :30 Bisacodyl (Dulcolax) 5 mg DAILY PRN PO CONSTIPATION; Start 06/25/17 at 20:30 Hydralazine HCl (Apresoline) 10 mg Q4H PRN IV ELEVATED SYSTOLIC BP Last administered on 06/26/17 01:56; Admin Dose 10 MG; Start 06/25/17 at 21:30 Brimonidine/ Timolol (Combigan Oph) 1 drop BID LEFT EYE ; Start 06/26/17 at 09: 00; Status Future Hold Brimonidine Tartrate (Alphagan 0.2%) 1 drop BID LEFT EYE Last administered on 06/27/17 08:37; Admin Dose 1 DROP; Start 06/26/17 at 16:00 Timolol Maleate (Timoptic 0.5%) 1 drop BID LEFT EYE Last administered on 08:37; Admin Dose 1 DROP; Start 06/26/17 at 16:00 ASHLEY CARTER Jun 27, 2017 11:17
[2017-06-27] MEDS: CALCIUM/VITAMIN D (500/200) TAB PO SCH ×2 (12:08→13:00)
--- NOTE | 2017-06-27 12:33 | RADRPT ---
PROCEDURE: Lexiscan myocardial perfusion study CLINICAL INDICATION: 71 -year-old patient complaining of chest pain. TECHNIQUE: Lexiscan 0.4 mg intravenously separate acquisition gated myocardial perfusion SPECT usi ng Tc 99m Myoview 32.0 mCi intravenously at stress and Tc-99m Myoview, 11.0 mCi intravenously at res t was performed using the rest/stress sequence. Poststress Myoview SPECT images were obtained in th e supine position. COMPARISON: No prior studies. FINDINGS: Perfusion images reveal no evidence of perfusion defects. Lexiscan post stress gated SPECT images demonstrate no wall motion abnormalities. IMPRESSION: 1. No evidence of perfusion defects. 2. No wall motion abnormalities. 3. The left ventricle ejection fraction at stress is 63%. A call report was made to Dr. Baldwin at 12:32 p.m. on June 27, 2017. RPTAT: HH .Moni Calderon MD, Date Time Electronically viewed and signed by .Moni Calderon MD, on 06/27/2017 12:33 .L/
--- NOTE | 2017-06-27 13:53 | DS ---
Date/Time of Note Date/Time of Note DATE: 06/27/17 TIME: 13:50 Discharge Summary Admission/Discharge Info Admit Date/Time Jun 25, 2017 at 19:04 Discharge Date/Time Patient Condition: Stable Hx of Present Illness Hospital Course This is a 71-year-old female with a history of hypertension presenting after a ground-level fall. She does appear to be a poor historian. She states she was walking and felt like she was suddenly falling to the floor. She has felt intermittently dizzy this week but is unable to describe further. She apparently told the ER physician that she did not have any loss of consciousness however upon my examination she states that she blacked out and that she does not recall the fall. She denies any associated chest pain or shortness of breath. Currently she denies any significant headache, focal weakness, focal numbness, nausea, or vision disturbance. No tinnitus or earache. To rule out possibility of syncope, patient has CT head, MRI head, Carotid US, echocardiography, and stress thallium test that all unremarkable. Patient will follow up with her PCP to remove the sutures on her face. Home Meds Active Scripts Sodium Chloride (Saline Nasal Mist) 126 Ml Mist, 1 SPRAY NASAL QID for 7 Days, BOTTLE Prov:MAGO OWENS MD 04/08/16 Reported Medications Brimonidine/Timolol* (Combigan*) 5 Ml Drops, 1 DROP LEFT EYE BID, BOTTLE 06/25/17 Difluprednate (Durezol) 5 Ml Drops, 5 ML OP BID, BOTTLE 1 DROP LEFT EYE BID 06/25/17 Ketorolac Tromethamine Oph (Ketorolac Tromethamine Oph) 0.4%-5 Ml Opht Drops, 1 DROP LEFT EYE BID, EA 06/25/17 Gluc Gutierres/Chondroitin Sulfate A (Glucosamine Chondroitin Cap) 1 Cap Capsule, 1 CAP PO BID 05/21/15 Simvastatin (Simvastatin) 40 Mg Tablet, 40 MG PO HS, TAB 05/21/15 Ibuprofen* (Advil*) 200 Mg Capsule, 200 MG PO Q6H Y for PAIN, CAP 05/21/15 Alendronate Sodium* (Fosamax*) 70 Mg Tablet, 70 MG PO Q7D, TAB 05/21/15 Calcium Carbonate/Vitamin D3* (Os-Federico 500+D*) 1 Tab Tablet, 1 TAB PO TID, TAB 05/21/15 Follow-up Plan PCP in one week to remove sutures Primary Care Provider Care Physician No Primary MOSES ALMENDAREZ MD Jun 27, 2017 13:53
== END 2017-06-27 16:31 | disposition home or self-care (01) ==
LOC: FTE 15:18 → TEL 19:04
PROVIDERS: ADMIT Internal Medicine; ATTEND Internal Medicine
DX: S01.81XA Laceration without foreign body of other part of head, initial encounter (principal); I10 Essential (primary) hypertension; M81.0 Age-related osteoporosis without current pathological fracture; E78.5 Hyperlipidemia, unspecified; R00.1 Bradycardia, unspecified; R94.31 Abnormal electrocardiogram [ECG] [EKG]; W19.XXXA Unspecified fall, initial encounter; Y93.01 Activity, walking, marching and hiking; Y99.9 Unspecified external cause status; Y92.9 Unspecified place or not applicable
CPT/HCPCS: 12013; 36415; 70450; 70486; 70551; 71010; 78452; 80048; 80053; 80061; 81001; 82550; 82553; 83036; 83735; 84443; 84484; 85025; 93005; 93017; 93306; 93880; 97161; 99285; A9500; A9505; G0378; G8978; G8979; G8980; J0360; J2405; J2785